=== PATIENT | male | born 1950 | race Caucasian/White ===

== ENCOUNTER 2017-07-03 06:05 | Inpatient (IN) | payer MEDICARE ==
--- NOTE | 2017-07-03 06:18 | C.PDOC ---
History Of Present Illness Patient presents with intermittent chest pain and some shortness of breath , for about 1 week, but [place] Dull chest wall pain Speaking in complete sentences., No f/c/n/v Time Seen by Provider: 07/03/17 06:18 Chief Complaint (Nursing): Chest Pain History Per: Patient History/Exam Limitations: no limitations Onset/Duration Of Symptoms: Days Current Symptoms Are (Timing): Still Present Context: Other Severity: Moderate Pain Scale Rating Of: 4 Quality: Dull, Aching Associated Symptoms: denies: Nausea, Dyspnea Modifying Factors: None Exacerbating Factors: None Alleviating Factors: None Recent travel outside of the [place]: No Additional History Per: Patient Past Medical History Reviewed: Historical Data, Nursing Documentation, Vital Signs Vital Signs: Last Vital Signs Temp 98.2 F 07/03/17 06:13 Pulse 105 H 07/03/17 06:13 Resp 26 H 07/03/17 06:13 BP 150/93 H 07/03/17 06:13 Pulse Ox 96 07/03/17 06:22 - Medical History PMH: HTN - [facility] DRAINAGE OF R LOW LEG SUBCU/FASCIA, OPEN APPROACH (08/08/15) Family History: States: No Known Family Hx - Social History Hx Alcohol Use: Yes Hx Substance Use: No Review Of Systems Constitutional: Negative for: Fever, Chills Eyes: Negative for: Vision Change ENT: Negative for: Throat Pain Cardiovascular: Positive for: Chest Pain Respiratory: Positive for: Shortness of Breath Gastrointestinal: Negative for: Nausea, Vomiting, Abdominal Pain Genitourinary: Negative for: Dysuria Musculoskeletal: Negative for: Back Pain Skin: Negative for: Rash Neurological: Negative for: Weakness Psych: Negative for: Anxiety Physical Exam - Physical Exam Appears: Non-toxic, No Acute Distress Skin: Warm, Dry Head: Normacephalic Eye(s): bilateral: Normal Inspection Oral Mucosa: Moist Neck: Supple Chest: Symmetrical Cardiovascular: Rhythm Regular Respiratory: No Rales, No Rhonchi, No Wheezing Gastrointestinal/Abdominal: Soft, No Tenderness, No Distention, No Guarding, No Rebound Back: No CVA Tenderness Extremity: Normal ROM Extremity: Bilateral: Atraumatic Pulses: Left Dorsalis Pedis: Normal, Right Dorsalis Pedis: Normal Neurological/Psych: Oriented x3, Normal Speech, Normal Cognition Gait: Steady ED Course And Treatment ECG: Interpreted By Me, Viewed By Me ECG Rhythm: Sinus Rhythm (102), L BBB, Nonspecific Changes (occ pvc's) O2 Sat by Pulse Oximetry: 96 Pulse Ox Interpretation: Normal Disposition Counseled Patient/Family Regarding: Studies Performed, Diagnosis - Disposition Disposition Time: 06:18 Condition: FAIR Forms: [facility] (Moroccan) - Clinical Impression Clinical Impression: Chest pain Physician Patient Turnover Patient Signed Over To: Liliana Cárdenas Handoff Comments: pending labs and dispostion
[2017-07-03] MEDS ORDERED: Aspirin 325 mg EC Tablets PO STA (06:22)
[2017-07-03 06:50] LABS: BASO # 0.1 K/uL (0.0-0.2); BASO % 1.2 % (0.0-2.0); EOS # 0.2 K/uL (0.0-0.7); EOS % 3.3 % (0.0-4.0); HEMOGLOBIN 13.5 g/dL (12.0-18.0); LYMPH # 1.1 K/uL (1.0-4.3); LYMPH % 19.4 % (20.0-40.0); MEAN CORPUSCULAR HEMOGLOBIN 33.1 pg (27.0-31.0); MEAN CORPUSCULAR HGB CONC 34.2 g/dL (33.0-37.0); MEAN PLATELET VOLUME 10.6 fL (7.2-11.7); MONO # 0.4 K/uL (0.0-0.8); MONO % 6.4 % (0.0-10.0); NEUT # 3.9 K/uL (1.8-7.0); NEUT % 69.7 % (50.0-75.0); NRBC % 0.1 % (0.0-2.0); RBC 4.07 Mil/uL (4.40-5.90); RED CELL DISTRIBUTION WIDTH 14.5 % (11.5-14.5); WHITE BLOOD COUNT 5.6 K/uL (4.8-10.8)
[2017-07-03 06:58] LABS: PROTHROMBIN TIME 11.4 SECONDS (9.7-12.2)
[2017-07-03 07:29] LABS: ALB/GLOB RATIO 1.2 (1.0-2.1); ALBUMIN 3.7 g/dL (3.5-5.0); ALT/SGPT 50 U/L (21-72); AST/SGOT 34 U/L (17-59); BLOOD UREA NITROGEN 17 mg/dL (9-20); CALCIUM 8.5 mg/dl (8.6-10.4); GFR AFRICAN-AMERICAN > 60; GFR NON-AFRICAN AMERICAN > 60
[2017-07-03 07:32] LABS: GRANULAR CAST 8 /lpf (0-1); URINE BILIRUBIN NEGATIVE (NEGATIVE); URINE BLOOD NEGATIVE (NEGATIVE); URINE CLARITY Hazy (Clear); URINE COLOR Yellow (YELLOW); URINE GLUCOSE (UA) 2+ mg/dL (Normal); URINE LEUKOCYTE ESTERASE NEG Leu/uL (Negative); URINE PROTEIN 2+ mg/dL (NEGATIVE); URINE UROBILINOGEN NORMAL mg/dL (0.2-1.0)
[2017-07-03 07:42] LABS: B-TYPE NATRIURETIC PEPTIDE 1780 pg/mL (0-900)
--- NOTE | 2017-07-03 07:48 | RAD ---
PROCEDURE: CHEST RADIOGRAPH, 1 VIEW HISTORY: chest pain COMPARISON: 08/08/2015 FINDINGS: LUNGS: No consolidation. Pulmonary venous congestion suggested -increased since prior exam PLEURA: No pneumothorax or pleural fluid seen. CARDIOVASCULAR: Cardiomegaly -similar OSSEOUS STRUCTURES: Thoracic spondylosis. Bilateral shoulder arthrosis VISUALIZED UPPER ABDOMEN: Normal. OTHER FINDINGS: None. IMPRESSION: Interval increased CHF
--- NOTE | 2017-07-03 11:28 | CARD ---
APPROVED REPORT EKG Measurement Heart [id number] <Conclusion> Sinus tachycardia with premature atrial complexes with aberrant conduction Left bundle branch block Abnormal ECG
--- NOTE | 2017-07-03 13:42 | CP.PCM.HP ---
History of Present Illness - History of Present Illness History of Present Illness: As a 67-year-old male with history of with history of osteoarthritis anxiety hypertension came in because of chest pain for a week left kidney and left side dull non-radiating nonreferred last for long time with some shortness of breath nonspecific without fever without cough got better after Lasix 20 mg almost going on for a week eventually decided to admit as a new onset CHF the pain and shortness of breath got worse when patient arrived at the train station eventually patient was able to come to the [facility] for further workup patient has no heart is done as per the patient Present on Admission - Present on Admission Any Indicators Present on Admission: No Past Patient History - Past Medical History & Family History Past Medical History?: No - Past Social History Smoking Status: Former Smoker - CARDIAC Hx Hypertension: Yes - ENDOCRINE/METABOLIC Hx Diabetes Mellitus Type 2: Yes - MUSCULOSKELETAL/RHEUMATOLOGICAL Hx Falls: No - PSYCHIATRIC Hx Substance Use: No - SURGICAL HISTORY Hx Surgeries: No - ANESTHESIA Hx Anesthesia: No Meds Allergies/Adverse Reactions: Allergies Allergy/AdvReac Type Severity Reaction Status Date / Time No Known Allergies Allergy Verified 07/03/17 06:19 Physical Exam - Constitutional Appears: Well - Head Exam Head Exam: ATRAUMATIC, NORMAL INSPECTION, NORMOCEPHALIC - Eye Exam Eye Exam: EOMI, Normal appearance, PERRL Pupil Exam: NORMAL ACCOMODATION, PERRL - ENT Exam ENT Exam: Mucous Membranes Moist, Normal Exam - Neck Exam Neck exam: Positive for: Normal Inspection - Respiratory Exam Respiratory Exam: Decreased Breath Sounds - Cardiovascular Exam Cardiovascular Exam: REGULAR RHYTHM, +S1, +S2 - GI/Abdominal Exam GI & Abdominal Exam: Diminished Bowel Sounds, Soft - Rectal Exam Rectal Exam: Deferred Results - Vital Signs Recent Vital Signs: Last Vital Signs Temp 98.6 F 07/03/17 12:23 Pulse 94 H 07/03/17 12:23 Resp 20 07/03/17 12:23 BP 129/76 07/03/17 12:23 Pulse Ox 95 07/03/17 12:23 - Labs Result Diagrams: 07/03/17 06:47 07/03/17 06:47 Labs: Laboratory Results - last 24 hr 07/03/17 07/03/17 07/03/17 06:47 06:47 06:47 WBC 5.6 RBC 4.07 L Hgb 13.5 Hct 39.5 MCV 97.0 H MCH 33.1 H MCHC 34.2 RDW 14.5 Plt Count 197 D MPV 10.6 Neut % (Auto) 69.7 Lymph % (Auto) 19.4 L [place] % (Auto) 6.4 Eos % (Auto) 3.3 Baso % (Auto) 1.2 Neut # (Auto) 3.9 Lymph # (Auto) 1.1 [place] # (Auto) 0.4 Eos # (Auto) 0.2 Baso # (Auto) 0.1 PT 11.4 INR 1.0 APTT 30 Sodium 135 Potassium 4.2 Chloride 100 Carbon Dioxide 22 Anion Gap 17 BUN 17 Creatinine 0.9 Est GFR ( Amer) > 60 Est GFR (Non-Af Amer) > 60 Random Glucose 266 H Calcium 8.5 L Total Bilirubin 0.6 AST 34 ALT 50 Alkaline Phosphatase 130 H Troponin I 0.0320 NT-Pro-B Natriuret Pep 1780 H Total Protein 6.6 Albumin 3.7 Globulin 3.0 Albumin/Globulin Ratio 1.2 Urine Color Urine Clarity Urine pH Ur Specific [place] Urine Protein Urine Glucose (UA) Urine Ketones Urine Blood Urine Nitrate Urine Bilirubin Urine Urobilinogen Ur Leukocyte Esterase Urine WBC (Auto) Urine RBC (Auto) Hyaline Casts Granular Casts (Auto) 07/03/17 07:01 WBC RBC Hgb Hct MCV MCH MCHC RDW Plt Count MPV Neut % (Auto) Lymph % (Auto) [place] % (Auto) Eos % (Auto) Baso % (Auto) Neut # (Auto) Lymph # (Auto) [place] # (Auto) Eos # (Auto) Baso # (Auto) PT INR APTT Sodium Potassium Chloride Carbon Dioxide Anion Gap BUN Creatinine Est GFR ( Amer) Est GFR (Non-Af Amer) Random Glucose Calcium Total Bilirubin AST ALT Alkaline Phosphatase Troponin I NT-Pro-B Natriuret Pep Total Protein Albumin Globulin Albumin/Globulin Ratio Urine Color Yellow Urine Clarity Hazy Urine pH 5.0 Ur Specific [place] 1.018 Urine Protein 2+ H Urine Glucose (UA) 2+ H Urine Ketones Trace Urine Blood Negative Urine Nitrate Negative Urine Bilirubin Negative Urine Urobilinogen Normal Ur Leukocyte Esterase Neg Urine WBC (Auto) 1 Urine RBC (Auto) 1 Hyaline Casts 11-20 H Granular Casts (Auto) 8 Assessment & Plan - Assessment and Plan (Free Text) Plan: GI prophylaxis DVT prophylaxis Pulmonary consultation Cardiology consultation Lasix IV Azithromycin IV DuoNeb All other management as ordered
[2017-07-03] MEDS ORDERED: Iodixanol 320 MG/ML 100 ML BOTTLE IV ONE (15:46)
[2017-07-03] MEDS: Albuterol-Ipratrop 3 mg / 0.5 (3 ml) UD INH SCH (16:21)
--- NOTE | 2017-07-03 16:39 | CT ---
PROCEDURE: CT Chest with contrast (Pulmonary Angiogram) HISTORY: pulmonary embolism COMPARISON: Chest radiograph also 07/03/2017. TECHNIQUE: Axial computed tomography images were obtained of the chest in the pulmonary arterial phase of enhancement. Coronal and sagittal reformatted images were created and reviewed. Intravenous contrast dose: Visipaque 320, 100 cc Radiation dose: Total exam DLP = 539.72 mGy-cm. This CT exam was performed using one or more of the following dose reduction techniques: Automated exposure control, adjustment of the mA and/or kV according to patient size, and/or use of iterative reconstruction technique. FINDINGS: PULMONARY ARTERIES: Unremarkable. No pulmonary embolism. AORTA: No acute findings. No thoracic aortic aneurysm. LUNGS: Bilateral subtle new reticulonodular infiltrates are appreciate the upper lobes predominantly with no definite alveolitis pattern evident. Limited compression atelectasis in the right greater than left lower lobes related to pleural effusions described below. Limited dependent atelectasis noted at the left upper lobe as well. PLEURAL SPACES: Mild bilateral pleural effusions are identified greater the right than left pleural spaces. No pneumothorax bilaterally. HEART: Mild cardiomegaly and extensive coronary artery atherosclerosis identified. No pericardial effusion. No definite pulmonary vascular congestion. LYMPH NODES: Shotty mediastinal and hilar lymph nodes are identified. BONES, CHEST WALL: Unremarkable. No fracture or destructive lesion OTHER FINDINGS: Incidental sludge or cholelithiasis seen in the dependent distended gallbladder without mural thickening or pericholecystic fluid collection evident. IMPRESSION: 1. No pulmonary embolus identified. 2. Nonspecific bilateral interstitial pattern of reticulonodular infiltrates are subtle in the bilateral upper lobes predominantly. No definite alveolitis bilaterally of the compression atelectasis is seen related to the right greater than left pleural effusions. 3. Mild bilateral pleural effusion greater the right than left sides. 4. Cardiomegaly. No definite pulmonary vascular congestion. 5. Distended gallbladder with layering sludge or limited cholelithiasis at the dependent portion.
--- NOTE | 2017-07-03 17:09 | CP.PCM.CON ---
Past Patient History - Past Medical History & Family History Past Medical History?: No - Past Social History Smoking Status: Former Smoker - CARDIAC Hx Hypertension: Yes - ENDOCRINE/METABOLIC Hx Diabetes Mellitus Type 2: Yes - MUSCULOSKELETAL/RHEUMATOLOGICAL Hx Falls: No - PSYCHIATRIC Hx Substance Use: No - SURGICAL HISTORY Hx Surgeries: No - ANESTHESIA Hx Anesthesia: No Meds Allergies/Adverse Reactions: Allergies Allergy/AdvReac Type Severity Reaction Status Date / Time No Known Allergies Allergy Verified 07/03/17 06:19 - Medications Medications: Current Medications Albuterol/Ipratropium (Duoneb 3 Mg/0.5 Mg (3 Ml) Ud) 3 ml INH RQ6 JUAN Last Admin: 07/03/17 16:21 Dose: 3 ml Aspirin (Aspirin) 325 mg PO DAILY JUAN Enoxaparin Sodium (Lovenox) 40 mg SC DAILY JUAN Furosemide (Lasix) 40 mg IVP DAILY JUAN Azithromycin 500 mg/ Sodium (Chloride) 250 mls @ 250 mls/hr IVPB DAILY JUAN PRN Reason: Protocol Stop: 07/07/17 10:01 Pantoprazole Sodium (Protonix Ec Tab) 40 mg PO DAILY [facility] Results - Vital Signs Recent Vital Signs: Last Vital Signs Temp 98.6 F 07/03/17 12:23 Pulse 100 H 07/03/17 15:24 Resp 20 07/03/17 15:24 BP 133/89 07/03/17 15:24 Pulse Ox 97 07/03/17 15:24 - Labs Result Diagrams: 07/03/17 06:47 07/03/17 06:47 Labs: Laboratory Results - last 24 hr 07/03/17 07/03/17 07/03/17 06:47 06:47 06:47 WBC 5.6 RBC 4.07 L Hgb 13.5 Hct 39.5 MCV 97.0 H MCH 33.1 H MCHC 34.2 RDW 14.5 Plt Count 197 D MPV 10.6 Neut % (Auto) 69.7 Lymph % (Auto) 19.4 L [place] % (Auto) 6.4 Eos % (Auto) 3.3 Baso % (Auto) 1.2 Neut # (Auto) 3.9 Lymph # (Auto) 1.1 [place] # (Auto) 0.4 Eos # (Auto) 0.2 Baso # (Auto) 0.1 PT 11.4 INR 1.0 APTT 30 Sodium 135 Potassium 4.2 Chloride 100 Carbon Dioxide 22 Anion Gap 17 BUN 17 Creatinine 0.9 Est GFR ( Amer) > 60 Est GFR (Non-Af Amer) > 60 Random Glucose 266 H Calcium 8.5 L Total Bilirubin 0.6 AST 34 ALT 50 Alkaline Phosphatase 130 H Troponin I 0.0320 NT-Pro-B Natriuret Pep 1780 H Total Protein 6.6 Albumin 3.7 Globulin 3.0 Albumin/Globulin Ratio 1.2 Urine Color Urine Clarity Urine pH Ur Specific [place] Urine Protein Urine Glucose (UA) Urine Ketones Urine Blood Urine Nitrate Urine Bilirubin Urine Urobilinogen Ur Leukocyte Esterase Urine WBC (Auto) Urine RBC (Auto) Hyaline Casts Granular Casts (Auto) 07/03/17 07:01 WBC RBC Hgb Hct MCV MCH MCHC RDW Plt Count MPV Neut % (Auto) Lymph % (Auto) [place] % (Auto) Eos % (Auto) Baso % (Auto) Neut # (Auto) Lymph # (Auto) [place] # (Auto) Eos # (Auto) Baso # (Auto) PT INR APTT Sodium Potassium Chloride Carbon Dioxide Anion Gap BUN Creatinine Est GFR ( Amer) Est GFR (Non-Af Amer) Random Glucose Calcium Total Bilirubin AST ALT Alkaline Phosphatase Troponin I NT-Pro-B Natriuret Pep Total Protein Albumin Globulin Albumin/Globulin Ratio Urine Color Yellow Urine Clarity Hazy Urine pH 5.0 Ur Specific [place] 1.018 Urine Protein 2+ H Urine Glucose (UA) 2+ H Urine Ketones Trace Urine Blood Negative Urine Nitrate Negative Urine Bilirubin Negative Urine Urobilinogen Normal Ur Leukocyte Esterase Neg Urine WBC (Auto) 1 Urine RBC (Auto) 1 Hyaline Casts 11-20 H Granular Casts (Auto) 8
[2017-07-03] MEDS: (Novolog) Insulin Aspart, Recombinant 100 u/ml 10 ml vial SC SCH ×2 (18:32→22:21)
--- NOTE | 2017-07-03 19:14 | CP.PCM.CON ---
History of Present Illness - History of Present Illness History of Present Illness: I was asked to evaluate patient by Dr Macey Moore patient is a 67 year old male with PMH HTn, DM who presents with chest pain. Symptoms began about one week ago, and are describesd as pressure like and associated with exertion. The patient has associated dyspnea. The patient states symptoms are progressive. He has to stop for symptoms to improve. Review of Systems - Constitutional Constitutional: absent: As Per HPI, Anorexia, Chills, Daytime Sleepiness, Excessive Sweating, Fatigue, Fever, Frequent Falls, Headache, Increased Appetite , Lethargy, Malaise, Night Sweats, Snoring, Sleep Apnea, Weight Gain, Weight Loss, Weakness, Other - EENT Eyes: absent: As Per HPI, Blind Spots, Blurred Vision, Change in Vision, Decreased Night Vision, Diplopia, Discharge, Dry Eye, Exophthalmos, Floaters, Irritation, Itchy Eyes, Loss of Peripheral Vision, Pain, Photophobia, Requires Corrective Lenses, Sees Flashes, Spots in Vision, Tunnel Vision, Other Visual Disturbances, Loss of Vision, Other Ears: absent: As Per HPI, Decreased Hearing, Ear Discharge, Ear Pain, Tinnitus, Abnormal Hearing, Disequilibrium, Dizziness, Other Nose/Mouth/Throat: absent: As Per HPI, Epistaxis, Nasal Congestion, Nasal Discharge, Nasal Obstruction, Nasal Trauma, Nose Pain, Post Nasal Drip, Sinus Pain, Sinus Pressure, Bleeding Gums, Change in Voice, Dental Pain, Dry Mouth, Dysphagia, Halitosis, Hoarsness, Lip Swelling, Mouth Lesions, Mouth Pain, Odynophagia, Sore Throat, Throat Swelling, Tongue Swelling, Facial Pain, Neck Pain, Neck Mass, Other - Cardiovascular Cardiovascular: Chest Pain at Rest, Dyspnea - Respiratory Respiratory: Dyspnea - Gastrointestinal Gastrointestinal: absent: As Per HPI, Abdominal Pain, Belching, Bloating, Change in Bowel Habits, Change in Stool Character, Coffee Ground Emesis, Constipation, Cramping, Diarrhea, Dyspepsia, Dysphagia, Early Satiety, Excessive Flatus, Fecal Incontinence, Heartburn, Hematemesis, Hematochezia, Loose Stools, Melena, Nausea, Odynophagia, Temesmus, Vomiting, Other - Genitourinary Genitourinary: absent: As Per HPI, Change in Urinary Stream, Difficulty Urinating, Dysuria, Flank Pain, Hematuria, Pyuria, Nocturia, Urinary Incontinence, Urinary Frequency, Urinary Hesitance, Urinary Urgency, Voiding Freq/Small Amts, Freq UTI, Hx Renal/Bladder Calculi, Hx /Renal Surgery, Bladder Distension, Other - Musculoskeletal Musculoskeletal: absent: As Per HPI, Abnormal Gait, Arthralgias, Atrophy, Back Pain, Deformity, Joint Swelling, Limited Range of Motion, Loss of Height, Muscle Cramps, Muscle Weakness, Myalgias, Neck Pain, Numbness, Radiating Pain into Limb, Stiffness, Tingling, Other - Integumentary Integumentary: absent: As Per HPI, Acne, Alopecia, Bleeding Lesions, Change in Hair, Change in Nails, Change in Pigmentation, Changing Lesions, Dry Skin, Erythema, Furuncle, Hirsutism, Lesions, New Lesions, Non-Healing Lesions, Photosensitivity, Pruritus, Rash, Skin Pain, Skin Ulcer, Sores, Striae, Swelling , Unusual Bruising, Wounds, Jaundice, Other - Neurological Neurological: absent: As Per HPI, Abnormal Gait, Abnormal Hearing, Abnormal Movements, Abnormal Speech, Behavioral Changes, Burning Sensations, Confusion, Convulsions, Disequilibrium, Dizziness, Numbness, Focal Weakness, Frequent Falls , Headaches, Lack of Coordination, Loss of Vision, Memory Loss, Paresthesias, Radicular Pain, Restless Legs, Sensory Deficit, Syncope, Tingling, Tremor, Vertigo, Weakness, Other Visual Disturbances, Other - Psychiatric Psychiatric: absent: As Per HPI, Abnormal Sleep Pattern, Anhedonia, Anxiety, Auditory Hallucinations, Behavioral Changes, Change in Appetite, Change in Libido, Confusion, Depression, Difficulty Concentrating, Hallucinations, Homicidal Ideation, Hopelessness, Irritability, Memory Loss, Mood Swings, Panic Attacks, Paranoia, Suicidal Ideation, Visual Hallucinations, Tactile Hallucinations, Other - Endocrine Endocrine: absent: As Per HPI, Change in Body Appearance, Change in Libido, Cold Intolorance, Deepening of Voice, Excessive Sweating, Fatigue, Flushing, Heat Intolorance, Increase in Ring/Shoe/Hat Size, Palpitations, Polydipsia, Polyphagia, Polyuria, Other - Hematologic/Lymphatic Hematologic: absent: As Per HPI, Easy Bleeding, Easy Bruising, Lymphadenopathy, Other Past Patient History - Past Medical History & Family History Past Medical History?: No - Past Social History Smoking Status: Former Smoker - CARDIAC Hx Hypertension: Yes - ENDOCRINE/METABOLIC Hx Diabetes Mellitus Type 2: Yes - MUSCULOSKELETAL/RHEUMATOLOGICAL Hx Falls: No - PSYCHIATRIC Hx Substance Use: No - SURGICAL HISTORY Hx Surgeries: No - ANESTHESIA Hx Anesthesia: No Meds Allergies/Adverse Reactions: Allergies Allergy/AdvReac Type Severity Reaction Status Date / Time No Known Allergies Allergy Verified 07/03/17 06:19 - Medications Medications: Current Medications Albuterol/Ipratropium (Duoneb 3 Mg/0.5 Mg (3 Ml) Ud) 3 ml INH RQ6 JUAN Last Admin: 07/03/17 16:21 Dose: 3 ml Aspirin (Aspirin) 325 mg PO DAILY JUAN Enoxaparin Sodium (Lovenox) 40 mg SC DAILY JUAN Furosemide (Lasix) 40 mg IVP DAILY JUAN Azithromycin 500 mg/ Sodium (Chloride) 250 mls @ 250 mls/hr IVPB DAILY JUAN PRN Reason: Protocol Stop: 07/07/17 10:01 Insulin Aspart (Novolog) 0 unit SC ACHS JUAN PRN Reason: Protocol Last Admin: 07/03/17 18:32 Dose: 5 unit Pantoprazole Sodium (Protonix Ec Tab) 40 mg PO DAILY [facility] Physical Exam - Constitutional Appears: Non-toxic - Head Exam Head Exam: NORMAL INSPECTION - Eye Exam Eye Exam: Normal appearance - ENT Exam ENT Exam: Mucous Membranes Moist - Neck Exam Neck exam: Positive for: Full Rom - Respiratory Exam Respiratory Exam: NORMAL BREATHING PATTERN - Cardiovascular Exam Cardiovascular Exam: REGULAR RHYTHM - GI/Abdominal Exam GI & Abdominal Exam: Normal Bowel Sounds - Rectal Exam Rectal Exam: Deferred - Extremities Exam Extremities exam: Negative for: pedal edema - Back Exam Back exam: NORMAL INSPECTION - Neurological Exam Neurological exam: Alert, Oriented x3 - Psychiatric Exam Psychiatric exam: Normal Affect - Skin Skin Exam: Normal Color Results - Vital Signs Recent Vital Signs: Last Vital Signs Temp 98.7 F 07/03/17 16:59 Pulse 92 H 07/03/17 16:59 Resp 18 07/03/17 16:59 BP 138/88 07/03/17 16:59 Pulse Ox 98 07/03/17 16:59 - Labs Result Diagrams: 07/03/17 06:47 07/03/17 06:47 Labs: Laboratory Results - last 24 hr 07/03/17 07/03/17 07/03/17 06:47 06:47 06:47 WBC 5.6 RBC 4.07 L Hgb 13.5 Hct 39.5 MCV 97.0 H MCH 33.1 H MCHC 34.2 RDW 14.5 Plt Count 197 D MPV 10.6 Neut % (Auto) 69.7 Lymph % (Auto) 19.4 L [place] % (Auto) 6.4 Eos % (Auto) 3.3 Baso % (Auto) 1.2 Neut # (Auto) 3.9 Lymph # (Auto) 1.1 [place] # (Auto) 0.4 Eos # (Auto) 0.2 Baso # (Auto) 0.1 PT 11.4 INR 1.0 APTT 30 Sodium 135 Potassium 4.2 Chloride 100 Carbon Dioxide 22 Anion Gap 17 BUN 17 Creatinine 0.9 Est GFR ( Amer) > 60 Est GFR (Non-Af Amer) > 60 POC Glucose (mg/dL) Random Glucose 266 H Calcium 8.5 L Total Bilirubin 0.6 AST 34 ALT 50 Alkaline Phosphatase 130 H Troponin I 0.0320 NT-Pro-B Natriuret Pep 1780 H Total Protein 6.6 Albumin 3.7 Globulin 3.0 Albumin/Globulin Ratio 1.2 Urine Color Urine Clarity Urine pH Ur Specific [place] Urine Protein Urine Glucose (UA) Urine Ketones Urine Blood Urine Nitrate Urine Bilirubin Urine Urobilinogen Ur Leukocyte Esterase Urine WBC (Auto) Urine RBC (Auto) Hyaline Casts Granular Casts (Auto) 07/03/17 07/03/17 07:01 17:50 WBC RBC Hgb Hct MCV MCH MCHC RDW Plt Count MPV Neut % (Auto) Lymph % (Auto) [place] % (Auto) Eos % (Auto) Baso % (Auto) Neut # (Auto) Lymph # (Auto) [place] # (Auto) Eos # (Auto) Baso # (Auto) PT INR APTT Sodium Potassium Chloride Carbon Dioxide Anion Gap BUN Creatinine Est GFR ( Amer) Est GFR (Non-Af Amer) POC Glucose (mg/dL) 389 H Random Glucose Calcium Total Bilirubin AST ALT Alkaline Phosphatase Troponin I NT-Pro-B Natriuret Pep Total Protein Albumin Globulin Albumin/Globulin Ratio Urine Color Yellow Urine Clarity Hazy Urine pH 5.0 Ur Specific [place] 1.018 Urine Protein 2+ H Urine Glucose (UA) 2+ H Urine Ketones Trace Urine Blood Negative Urine Nitrate Negative Urine Bilirubin Negative Urine Urobilinogen Normal Ur Leukocyte Esterase Neg Urine WBC (Auto) 1 Urine RBC (Auto) 1 Hyaline Casts 11-20 H Granular Casts (Auto) 8 - EKG Data EKG Interpreted by: Myself EKG shows normal: Sinus rhythm Assessment & Plan (1) Chest pain Assessment and Plan: patient has an abnormal EKG suggestive of LBBB. recommend echo to evaluate LV function Status: Acute (2) HTN (hypertension) Assessment and Plan: blood pressure control Status: Acute (3) Diabetes mellitus Assessment and Plan: risk factor for CAD Status: Acute
[2017-07-04] MEDS: Albuterol-Ipratrop 3 mg / 0.5 (3 ml) UD INH SCH ×4 (06:11→20:15)
[2017-07-04] MEDS: (Novolog) Insulin Aspart, Recombinant 100 u/ml 10 ml vial SC SCH ×4 (08:17→21:32)
--- NOTE | 2017-07-04 08:28 | CP.PCM.PN ---
Subjective - Date & Time of Evaluation Date of Evaluation: 07/04/17 Time of Evaluation: 08:20 - Subjective Subjective: no current chest pain. Objective - Vital Signs/Intake and Output Vital Signs (last 24 hours): Temp Pulse Resp BP Pulse Ox 97.8 F 86 20 142/82 97 07/04/17 07:05 07/04/17 07:05 07/04/17 07:05 07/04/17 07:05 07/04/17 07:05 - Medications Medications: Current Medications Albuterol/Ipratropium (Duoneb 3 Mg/0.5 Mg (3 Ml) Ud) 3 ml INH RQ6 JUAN Last Admin: 07/04/17 07:34 Dose: 3 ml Aspirin (Aspirin) 325 mg PO DAILY JUAN Enoxaparin Sodium (Lovenox) 40 mg SC DAILY JUAN Furosemide (Lasix) 40 mg IVP DAILY JUAN Azithromycin 500 mg/ Sodium (Chloride) 250 mls @ 250 mls/hr IVPB DAILY JUAN PRN Reason: Protocol Stop: 07/07/17 10:01 Insulin Aspart (Novolog) 0 unit SC ACHS JUAN PRN Reason: Protocol Last Admin: 07/04/17 08:17 Dose: 2 unit Pantoprazole Sodium (Protonix Ec Tab) 40 mg PO DAILY JUAN Pneumococcal Polyvalent Vaccine (Pneumovax 23 Vaccine) 0.5 ml IM .ONCE ONE Stop: 07/05/17 10:01 - Labs Labs: 07/03/17 06:47 07/03/17 06:47 PT 11.4 SECONDS (9.7-12.2) 07/03/17 06:47 INR 1.0 07/03/17 06:47 APTT 30 SECONDS (21-34) 07/03/17 06:47 - Constitutional Appears: Non-toxic - Head Exam Head Exam: NORMAL INSPECTION - Eye Exam Eye Exam: Normal appearance - ENT Exam ENT Exam: Mucous Membranes Moist - Neck Exam Neck Exam: Full ROM - Respiratory Exam Respiratory Exam: NORMAL BREATHING PATTERN - Cardiovascular Exam Cardiovascular Exam: REGULAR RHYTHM - GI/Abdominal Exam GI & Abdominal Exam: Normal Bowel Sounds - Rectal Exam Rectal Exam: Deferred - Extremities Exam Extremities Exam: absent: Pedal Edema - Back Exam Back Exam: NORMAL INSPECTION - Neurological Exam Neurological Exam: Alert - Psychiatric Exam Psychiatric exam: Normal Affect - Skin Skin Exam: Normal Color Assessment and Plan (1) Chest pain Assessment & Plan: will check echo Status: Acute (2) HTN (hypertension) Assessment & Plan: blood pressure control Status: Acute (3) Diabetes mellitus Status: Acute
[2017-07-04] MEDS ORDERED: Glucagon Recombinant 1 mg Inj IM PRN (10:06)
[2017-07-04] MEDS ORDERED: Dextrose 50% SYRINGE Inj (50 ml) IV PRN (10:06)
--- NOTE | 2017-07-04 10:12 | CP.PCM.PN ---
Addendum entered and electronically signed by Jorge Bolton DO 07/04/17 16:09: Patient further denies SOB or palpitations at rest or with exertion. Original Note: <Jorge Bolton - Last Filed: 07/04/17 16:08> Subjective - Date & Time of Evaluation Date of Evaluation: 07/04/17 Time of Evaluation: 09:52 - Subjective Subjective: PGY02 note for Dr. Moore's service: Pt seen and examined at bedside. Nursing reports no acute events overnight. Patient denies chest pain overnight. Objective - Vital Signs/Intake and Output Vital Signs (last 24 hours): Temp Pulse Resp BP Pulse Ox 97.8 F 98 H 20 142/82 97 07/04/17 07:05 07/04/17 07:49 07/04/17 07:05 07/04/17 07:05 07/04/17 07:05 - Medications Medications: Current Medications Albuterol/Ipratropium (Duoneb 3 Mg/0.5 Mg (3 Ml) Ud) 3 ml INH RQ6 [facility] Last Admin: 07/04/17 07:34 Dose: 3 ml Aspirin (Aspirin) 325 mg PO DAILY [facility] Enoxaparin Sodium (Lovenox) 40 mg SC DAILY [facility] Furosemide (Lasix) 40 mg IVP DAILY [facility] Azithromycin 500 mg/ Sodium (Chloride) 250 mls @ 250 mls/hr IVPB DAILY [facility] PRN Reason: Protocol Stop: 07/07/17 10:01 Insulin Aspart (Novolog) 0 unit SC ACHS [facility] PRN Reason: Protocol Last Admin: 07/04/17 08:17 Dose: 2 unit Pantoprazole Sodium (Protonix Ec Tab) 40 mg PO DAILY [facility] Pneumococcal Polyvalent Vaccine (Pneumovax 23 Vaccine) 0.5 ml IM .ONCE ONE Stop: 07/05/17 10:01 - Labs Labs: 07/03/17 06:47 07/03/17 06:47 PT 11.4 SECONDS (9.7-12.2) 07/03/17 06:47 INR 1.0 07/03/17 06:47 APTT 30 SECONDS (21-34) 07/03/17 06:47 - Constitutional Appears: Non-toxic, No Acute Distress - Head Exam Head Exam: ATRAUMATIC, NORMAL INSPECTION - Eye Exam Eye Exam: EOMI. absent: Scleral icterus Pupil Exam: PERRL - ENT Exam ENT Exam: Mucous Membranes Moist Additional comments: no jvd - Neck Exam Neck Exam: Full ROM - Respiratory Exam Respiratory Exam: Clear to Ausculation Bilateral, NORMAL BREATHING PATTERN. absent: Rales, Rhonchi, Wheezes - Cardiovascular Exam Cardiovascular Exam: REGULAR RHYTHM, +S1, +S2 - GI/Abdominal Exam GI & Abdominal Exam: Soft, Normal Bowel Sounds. absent: Tenderness - Extremities Exam Extremities Exam: Normal Inspection. absent: Pedal Edema - Back Exam Back Exam: absent: CVA tenderness (L), CVA tenderness (R) - Neurological Exam Neurological Exam: Alert, Awake, Oriented x3 - Psychiatric Exam Psychiatric exam: Normal Affect - Skin Skin Exam: Normal Color, Warm Assessment and Plan - Assessment and Plan (Free Text) Plan: Chest pain - R/o ACS Admit to tele Troponin negative x 1 EKG (07/03/17): NSR @ ; LBB; Dr. Britt, application development consultant - f/u reccs f/u ECHO CHF Unknown type - f/u ECHO BNP 1780 CXR (07/02/17): Pulm venous congestion - increased since prior exam. Dr. Britt, application development consultant - f/u reccs Lasix 40mg IV Daily SOB Etiology: CHF exacerbation CT CHEST (07/02/17): No pulm embolus. Nonspecific b/l reticulonodular infiltrates are subtle in b/l upper lobes predominantly. No definite alveolitis b/l of compression atelectasis is related to right > left pleural effusions. Mild b/l plueral effusion greater right than left. Cardiomegaly. No definite pulm vasc congestion. Distended GB w layering sludge or limited cholelithiasis at dependent portion. Dr. Merida, Pulm consult - f/u reccs Duonebs Q6H [facility] Azithromycin 500mg IV daily (start 07/03/17) Pleural effusions Etiology: Most likely CHF CT CHEST (07/02/17): No pulm embolus. Nonspecific b/l reticulonodular infiltrates are subtle in b/l upper lobes predominantly. No definite alveolitis b/l of compression atelectasis is related to right > left pleural effusions. Mild b/l plueral effusion greater right than left. Cardiomegaly. No definite pulm vasc congestion. Distended GB w layering sludge or limited cholelithiasis at dependent portion. Diabetes Mellitus f/u A1c Accuchecks Hypoglycemia protocol MISS ASA 325mg PO Daily Proteinuria UA (07/03/17): 2+ protein Monitor Prophylaxis Lovenox 40mg SC daily Protonix 40mg PO daily SCDs Jorge Bolton PGY-2 All management per Oscar <Leila Moore - Last Filed: 07/05/17 00:37> Objective - Vital Signs/Intake and Output Vital Signs (last 24 hours): Temp Pulse Resp BP Pulse Ox 98.0 F 96 H 20 110/77 94 L 07/04/17 15:55 07/04/17 16:16 07/04/17 15:55 07/04/17 15:55 07/04/17 15:55 Intake and Output: 07/04/17 07/05/17 18:59 06:59 Intake Total 250 500 Balance 250 500 - Medications Medications: Current Medications Albuterol/Ipratropium (Duoneb 3 Mg/0.5 Mg (3 Ml) Ud) 3 ml INH RQ6 [facility] Last Admin: 07/04/17 20:15 Dose: 3 ml Aspirin (Aspirin) 325 mg PO DAILY [facility] Last Admin: 07/04/17 10:26 Dose: 325 mg Dextrose (Dextrose 50% Inj) 0 ml IV STAT PRN; Protocol PRN Reason: Hypoglycemia Protocol Dextrose (Glutose 15) 0 gm PO ONCE PRN; Protocol PRN Reason: Hypoglycemia Protocol Enoxaparin Sodium (Lovenox) 40 mg SC DAILY [facility] Last Admin: 07/04/17 10:26 Dose: 40 mg Furosemide (Lasix) 40 mg IVP DAILY [facility] Last Admin: 07/04/17 10:38 Dose: 40 mg Glucagon (Glucagen Diagnostic Kit) 0 mg IM STAT PRN; Protocol PRN Reason: Hypoglycemia Protocol Azithromycin 500 mg/ Sodium (Chloride) 250 mls @ 250 mls/hr IVPB DAILY [facility] PRN Reason: Protocol Stop: 07/07/17 10:01 Last Admin: 07/04/17 10:24 Dose: 250 mls/hr Dextrose (Dextrose 5% In Water 1000 Ml) 1,000 mls @ 0 mls/hr IV .Q0M PRN; Protocol; Per Protocol PRN Reason: Hypoglycemia Protocol Insulin Aspart (Novolog) 0 unit SC ACHS [facility] PRN Reason: Protocol Last Admin: 07/04/17 21:32 Dose: 2 unit Pantoprazole Sodium (Protonix Ec Tab) 40 mg PO DAILY [facility] Last Admin: 07/04/17 10:26 Dose: 40 mg Pneumococcal Polyvalent Vaccine (Pneumovax 23 Vaccine) 0.5 ml IM .ONCE ONE Stop: 07/05/17 10:01 Temazepam (Restoril) 15 mg PO HS PRN PRN Reason: Insomnia Last Admin: 07/04/17 23:34 Dose: 15 mg - Labs Labs: 07/03/17 06:47 07/03/17 06:47 PT 11.4 SECONDS (9.7-12.2) 07/03/17 06:47 INR 1.0 07/03/17 06:47 APTT 30 SECONDS (21-34) 07/03/17 06:47 Attending/Attestation - Attestation I have personally seen and examined this patient.: Yes I have fully participated in the care of the patient.: Yes I have reviewed all pertinent clinical information, including history, physical exam and plan: Yes
[2017-07-04] MEDS: Azithromycin 500 MG in Sodium Chloride 0.9% 250 ML IVPB SCH (10:24)
[2017-07-04] MEDS: Enoxaparin 40 mg Syringe SC SCH (10:26)
[2017-07-04] MEDS: Pantoprazole 40 mg EC Tab PO SCH (10:26)
--- NOTE | 2017-07-04 17:49 | CP.PCM.PN ---
Subjective - Date & Time of Evaluation Date of Evaluation: 07/04/17 Time of Evaluation: 11:00 - Subjective Subjective: Patient is a 67 year old male with a past medical history of hypertension, osteoarthritis and anxiety who presented to [facility] on with complaints of chest pain and shortness of breath. EKG done in the ED showed sinus tachycardia at 102 bpm with left bundle branch block, but we have no previous studies available for comparison. CT scan showed non-specific reticulonodular changes of the bilateral upper lung lobes and small right > left pleural effusions. Patient seen today and examined seated upright in a chair. Patient comfortably conversational and in no apparent respiratory distress. Patient saturating well at 97% on room air and states his chest pain is improved and denies shortness of breath since receiving Lasix. Patient denies fevers, chills, coughing and wheezing. Assessment/Plan 1. CHF Follow-up with echocardiogram ordered by Dr. Britt. Shortness of breath on admission likely cardiogenic, given non-specific lung findings on imaging and LBBB per EKG. 2. Pleural effusions Continue to monitor for SOB, but will likely resolve with continued diuresis. Objective - Vital Signs/Intake and Output Vital Signs (last 24 hours): Temp Pulse Resp BP Pulse Ox 98.0 F 96 H 20 110/77 94 L 07/04/17 15:55 07/04/17 16:16 07/04/17 15:55 07/04/17 15:55 07/04/17 15:55 Intake and Output: 07/04/17 07/04/17 06:59 18:59 Intake Total 250 Balance 250 - Medications Medications: Current Medications Albuterol/Ipratropium (Duoneb 3 Mg/0.5 Mg (3 Ml) Ud) 3 ml INH RQ6 [facility] Last Admin: 07/04/17 13:13 Dose: 3 ml Aspirin (Aspirin) 325 mg PO DAILY [facility] Last Admin: 07/04/17 10:26 Dose: 325 mg Dextrose (Dextrose 50% Inj) 0 ml IV STAT PRN; Protocol PRN Reason: Hypoglycemia Protocol Dextrose (Glutose 15) 0 gm PO ONCE PRN; Protocol PRN Reason: Hypoglycemia Protocol Enoxaparin Sodium (Lovenox) 40 mg SC DAILY [facility] Last Admin: 07/04/17 10:26 Dose: 40 mg Furosemide (Lasix) 40 mg IVP DAILY [facility] Last Admin: 07/04/17 10:38 Dose: 40 mg Glucagon (Glucagen Diagnostic Kit) 0 mg IM STAT PRN; Protocol PRN Reason: Hypoglycemia Protocol Azithromycin 500 mg/ Sodium (Chloride) 250 mls @ 250 mls/hr IVPB DAILY [facility] PRN Reason: Protocol Stop: 07/07/17 10:01 Last Admin: 07/04/17 10:24 Dose: 250 mls/hr Dextrose (Dextrose 5% In Water 1000 Ml) 1,000 mls @ 0 mls/hr IV .Q0M PRN; Protocol; Per Protocol PRN Reason: Hypoglycemia Protocol Insulin Aspart (Novolog) 0 unit SC ACHS [facility] PRN Reason: Protocol Last Admin: 07/04/17 17:46 Dose: 2 unit Pantoprazole Sodium (Protonix Ec Tab) 40 mg PO DAILY [facility] Last Admin: 07/04/17 10:26 Dose: 40 mg Pneumococcal Polyvalent Vaccine (Pneumovax 23 Vaccine) 0.5 ml IM .ONCE ONE Stop: 07/05/17 10:01 - Labs Labs: 07/03/17 06:47 07/03/17 06:47 PT 11.4 SECONDS (9.7-12.2) 07/03/17 06:47 INR 1.0 07/03/17 06:47 APTT 30 SECONDS (21-34) 07/03/17 06:47
--- NOTE | 2017-07-04 19:12 | CP.PCM.PN ---
Subjective - Date & Time of Evaluation Date of Evaluation: 07/04/17 Time of Evaluation: 13:20 - Subjective Subjective: clinically same Objective - Vital Signs/Intake and Output Vital Signs (last 24 hours): Temp Pulse Resp BP Pulse Ox 98.0 F 96 H 20 110/77 94 L 07/04/17 15:55 07/04/17 16:16 07/04/17 15:55 07/04/17 15:55 07/04/17 15:55 Intake and Output: 07/04/17 07/05/17 18:59 06:59 Intake Total 250 Balance 250 - Medications Medications: Current Medications Albuterol/Ipratropium (Duoneb 3 Mg/0.5 Mg (3 Ml) Ud) 3 ml INH RQ6 [facility] Last Admin: 07/04/17 13:13 Dose: 3 ml Aspirin (Aspirin) 325 mg PO DAILY [facility] Last Admin: 07/04/17 10:26 Dose: 325 mg Dextrose (Dextrose 50% Inj) 0 ml IV STAT PRN; Protocol PRN Reason: Hypoglycemia Protocol Dextrose (Glutose 15) 0 gm PO ONCE PRN; Protocol PRN Reason: Hypoglycemia Protocol Enoxaparin Sodium (Lovenox) 40 mg SC DAILY [facility] Last Admin: 07/04/17 10:26 Dose: 40 mg Furosemide (Lasix) 40 mg IVP DAILY [facility] Last Admin: 07/04/17 10:38 Dose: 40 mg Glucagon (Glucagen Diagnostic Kit) 0 mg IM STAT PRN; Protocol PRN Reason: Hypoglycemia Protocol Azithromycin 500 mg/ Sodium (Chloride) 250 mls @ 250 mls/hr IVPB DAILY [facility] PRN Reason: Protocol Stop: 07/07/17 10:01 Last Admin: 07/04/17 10:24 Dose: 250 mls/hr Dextrose (Dextrose 5% In Water 1000 Ml) 1,000 mls @ 0 mls/hr IV .Q0M PRN; Protocol; Per Protocol PRN Reason: Hypoglycemia Protocol Insulin Aspart (Novolog) 0 unit SC ACHS [facility] PRN Reason: Protocol Last Admin: 07/04/17 17:46 Dose: 2 unit Pantoprazole Sodium (Protonix Ec Tab) 40 mg PO DAILY [facility] Last Admin: 07/04/17 10:26 Dose: 40 mg Pneumococcal Polyvalent Vaccine (Pneumovax 23 Vaccine) 0.5 ml IM .ONCE ONE Stop: 07/05/17 10:01 - Labs Labs: 07/03/17 06:47 07/03/17 06:47 PT 11.4 SECONDS (9.7-12.2) 07/03/17 06:47 INR 1.0 07/03/17 06:47 APTT 30 SECONDS (21-34) 07/03/17 06:47 - Constitutional Appears: Well - Head Exam Head Exam: ATRAUMATIC, NORMAL INSPECTION, NORMOCEPHALIC - Eye Exam Eye Exam: EOMI, Normal appearance, PERRL Pupil Exam: NORMAL ACCOMODATION, PERRL - ENT Exam ENT Exam: Mucous Membranes Moist, Normal Exam - Neck Exam Neck Exam: Full ROM, Normal Inspection. absent: Lymphadenopathy - Respiratory Exam Respiratory Exam: Decreased Breath Sounds - Cardiovascular Exam Cardiovascular Exam: REGULAR RHYTHM, +S1, +S2 - GI/Abdominal Exam GI & Abdominal Exam: Soft, Diminished Bowel Sounds - Rectal Exam Rectal Exam: Deferred Assessment and Plan - Assessment and Plan (Free Text) Plan: Chest pain - R/o ACS Admit to tele Troponin negative x 1 EKG (07/03/17): NSR @ ; LBB; Dr. Britt, reporting consultant - f/u reccs f/u ECHO CHF Unknown type - f/u ECHO BNP 1780 CXR (07/02/17): Pulm venous congestion - increased since prior exam. Dr. Britt, reporting consultant - f/u reccs Lasix 40mg IV Daily SOB Etiology: CHF exacerbation CT CHEST (07/02/17): No pulm embolus. Nonspecific b/l reticulonodular infiltrates are subtle in b/l upper lobes predominantly. No definite alveolitis b/l of compression atelectasis is related to right > left pleural effusions. Mild b/l plueral effusion greater right than left. Cardiomegaly. No definite pulm vasc congestion. Distended GB w layering sludge or limited cholelithiasis at dependent portion. Dr. Merida, Pulm consult - f/u reccs Duonebs Q6H [facility] Azithromycin 500mg IV daily (start 07/03/17) Pleural effusions Etiology: Most likely CHF CT CHEST (07/02/17): No pulm embolus. Nonspecific b/l reticulonodular infiltrates are subtle in b/l upper lobes predominantly. No definite alveolitis b/l of compression atelectasis is related to right > left pleural effusions. Mild b/l plueral effusion greater right than left. Cardiomegaly. No definite pulm vasc congestion. Distended GB w layering sludge or limited cholelithiasis at dependent portion. Diabetes Mellitus f/u A1c Accuchecks Hypoglycemia protocol MISS ASA 325mg PO Daily Proteinuria UA (07/03/17): 2+ protein Monitor Prophylaxis Lovenox 40mg SC daily Protonix 40mg PO daily SCDs
[2017-07-05] MEDS: Albuterol-Ipratrop 3 mg / 0.5 (3 ml) UD INH SCH ×4 (01:26→19:19)
--- NOTE | 2017-07-05 06:47 | CARD ---
APPROVED REPORT EXAM: Two-dimensional and M-mode echocardiogram with Doppler and color Doppler. Other Information Quality : GoodRhythm : INDICATION Dyspnea Chest Pain Congestive Heart Failure RISK FACTORS Hypertension Diabetes 2D DIMENSIONS IVSd1.0 (0.7-1.1cm)LVDd5.6 (3.9-5.9cm) PWd0.8 (0.7-1.1cm)LVDs4.9 (2.5-4.0cm) FS (%) 13.8 %LVEF (%)29.2 (>50%) M-Mode DIMENSIONS Left Atrium (MM)3.80 (2.5-4.0cm)Aortic Root2.89 (2.2-3.7cm) Aortic Cusp Exc.1.84 (1.5-2.0cm) Mitral Valve MV E Fjixnwct678.9cm/sE/A ratio0.0 TDI E/Lateral E'0.0E/Medial E'0.0 Tricuspid Valve TR Peak [id number]/sTR Peak [id number] LEFT VENTRICLE The Left Ventricle is mildly dilated. There is normal left ventricular wall thickness. Left ventricle systolic function is severely impaired. The Ejection Fraction is 25-30%. There is severe global hypokinesis of the left ventricle. The left ventricular diastolic function is normal. No left ventricle thrombus noted on this study. RIGHT VENTRICLE The right ventricle is normal size. There is normal right ventricular wall thickness. Systolic function is severely reduced. ATRIA The left atrium size is normal. The right atrium size is normal. The interatrial septum is intact with no evidence for an atrial septal defect. The atrial septum is mildly aneurysmal. AORTIC VALVE The aortic valve is normal in structure. No aortic regurgitation is present. There is no aortic valvular stenosis. There is no aortic valvular vegetation. MITRAL VALVE The mitral valve is normal in structure. There is no evidence of mitral valve prolapse. There is no mitral valve stenosis. Mitral regurgitation is mild to moderate. TRICUSPID VALVE The tricuspid valve is normal in structure. There is mild tricuspid regurgitation. Right ventricular systolic pressure is estimated at 50-60 mmHg. There is severe pulmonary hypertension. PULMONIC VALVE The pulmonic valve is not well visualized. There is mild pulmonic valvular regurgitation. GREAT VESSELS The aortic root is normal in size. PERICARDIAL EFFUSION There is no significant pericardial effusion. <Conclusion> Left ventricle systolic function is severely impaired. The Ejection Fraction is 25-30%. There is severe global hypokinesis of the left ventricle. No aortic regurgitation is present. Mitral regurgitation is mild to moderate. There is mild tricuspid regurgitation. There is severe pulmonary hypertension. There is mild pulmonic valvular regurgitation. No left ventricle thrombus noted on this study.
[2017-07-05] MEDS ORDERED: Iodixanol 320 MG/ML 200 ML BOTTLE IV ONE (07:31)
[2017-07-05] MEDS ORDERED: Midazolam 2 MG/2 ML VIAL ONE (07:32)
[2017-07-05] MEDS: (Novolog) Insulin Aspart, Recombinant 100 u/ml 10 ml vial SC SCH ×4 (08:01→21:14)
[2017-07-05 08:03] LABS: BASO % 0.8 % (0.0-2.0); EOS # 0.2 K/uL (0.0-0.7); HEMOGLOBIN 13.5 g/dL (12.0-18.0); LYMPH # 1.2 K/uL (1.0-4.3); LYMPH % 20.8 % (20.0-40.0); MEAN CORPUSCULAR HEMOGLOBIN 33.5 pg (27.0-31.0); MEAN CORPUSCULAR HGB CONC 34.5 g/dL (33.0-37.0); MEAN PLATELET VOLUME 10.8 fL (7.2-11.7); MONO # 0.5 K/uL (0.0-0.8); MONO % 8.5 % (0.0-10.0); NEUT # 3.8 K/uL (1.8-7.0); NEUT % 65.9 % (50.0-75.0); NRBC % 0.1 % (0.0-2.0); RBC 4.04 Mil/uL (4.40-5.90); RED CELL DISTRIBUTION WIDTH 14.4 % (11.5-14.5); WHITE BLOOD COUNT 5.8 K/uL (4.8-10.8)
[2017-07-05 08:20] LABS: ALB/GLOB RATIO 1.4 (1.0-2.1); ALBUMIN 4.1 g/dL (3.5-5.0); ALT/SGPT 29 U/L (21-72); AST/SGOT 23 U/L (17-59); BLOOD UREA NITROGEN 16 mg/dL (9-20); GFR AFRICAN-AMERICAN > 60; GFR NON-AFRICAN AMERICAN > 60
[2017-07-05] MEDS ORDERED: Pneumococcal 23-Valent Vaccine IM ONE (10:00)
--- NOTE | 2017-07-05 10:49 | CP.PCM.PN ---
Subjective - Date & Time of Evaluation Date of Evaluation: 07/05/17 Time of Evaluation: 07:05 - Subjective Subjective: Patient seen and examined at bedside. Nursing reports no acute events overnight. Patient denies chest pain overnight. Patient is aware of cardiac cath procedure today. He denies having fever, chills, shortness of breath, chest pain, nausea, or vomiting. Objective - Vital Signs/Intake and Output Vital Signs (last 24 hours): Temp Pulse Resp BP Pulse Ox 98.2 F 93 H 20 134/88 98 07/05/17 07:00 07/05/17 07:00 07/05/17 07:00 07/05/17 07:00 07/05/17 07:00 Intake and Output: 07/05/17 07/05/17 06:59 18:59 Intake Total 500 Balance 500 - Medications Medications: Current Medications Albuterol/Ipratropium (Duoneb 3 Mg/0.5 Mg (3 Ml) Ud) 3 ml INH RQ6 [facility] Last Admin: 07/05/17 01:26 Dose: 3 ml Aspirin (Aspirin) 325 mg PO DAILY [facility] Last Admin: 07/04/17 10:26 Dose: 325 mg Dextrose (Dextrose 50% Inj) 0 ml IV STAT PRN; Protocol PRN Reason: Hypoglycemia Protocol Dextrose (Glutose 15) 0 gm PO ONCE PRN; Protocol PRN Reason: Hypoglycemia Protocol Enoxaparin Sodium (Lovenox) 40 mg SC DAILY [facility] Last Admin: 07/04/17 10:26 Dose: 40 mg Furosemide (Lasix) 40 mg IVP DAILY [facility] Last Admin: 07/04/17 10:38 Dose: 40 mg Glucagon (Glucagen Diagnostic Kit) 0 mg IM STAT PRN; Protocol PRN Reason: Hypoglycemia Protocol Azithromycin 500 mg/ Sodium (Chloride) 250 mls @ 250 mls/hr IVPB DAILY [facility] PRN Reason: Protocol Stop: 07/07/17 10:01 Last Admin: 07/04/17 10:24 Dose: 250 mls/hr Dextrose (Dextrose 5% In Water 1000 Ml) 1,000 mls @ 0 mls/hr IV .Q0M PRN; Protocol; Per Protocol PRN Reason: Hypoglycemia Protocol Insulin Aspart (Novolog) 0 unit SC ACHS [facility] PRN Reason: Protocol Last Admin: 07/05/17 08:01 Dose: Not Given Pantoprazole Sodium (Protonix Ec Tab) 40 mg PO DAILY [facility] Last Admin: 07/04/17 10:26 Dose: 40 mg Temazepam (Restoril) 15 mg PO HS PRN PRN Reason: Insomnia Last Admin: 07/04/17 23:34 Dose: 15 mg - Labs Labs: 07/05/17 07:40 07/05/17 07:40 PT 11.4 SECONDS (9.7-12.2) 07/03/17 06:47 INR 1.0 07/03/17 06:47 APTT 30 SECONDS (21-34) 07/03/17 06:47 - Additional Findings Additional findings: - Constitutional Appears: Non-toxic, No Acute Distress - Head Exam Head Exam: ATRAUMATIC, NORMAL INSPECTION - Eye Exam Eye Exam: EOMI. absent: Scleral icterus Pupil Exam: PERRL - ENT Exam ENT Exam: Mucous Membranes Moist Additional comments: no jvd - Neck Exam Neck Exam: Full ROM - Respiratory Exam Respiratory Exam: Clear to Ausculation Bilateral, NORMAL BREATHING PATTERN. absent: Rales, Rhonchi, Wheezes - Cardiovascular Exam Cardiovascular Exam: REGULAR RHYTHM, +S1, +S2 - GI/Abdominal Exam GI & Abdominal Exam: Soft, Normal Bowel Sounds. absent: Tenderness - Extremities Exam Extremities Exam: Normal Inspection. absent: Pedal Edema - Back Exam Back Exam: absent: CVA tenderness (L), CVA tenderness (R) - Neurological Exam Neurological Exam: Alert, Awake, Oriented x3 - Psychiatric Exam Psychiatric exam: Normal Affect - Skin Skin Exam: Normal Color, Warm Assessment and Plan - Assessment and Plan (Free Text) Assessment: Chest pain - R/o ACS Admit to tele Troponin negative x 1 EKG (07/03/17): NSR @ ; LBB; Dr. Britt, media consultant outside sales Echocardiogram shows severe LV dysfunction with regional wall motion abnormalities suggestive of CAD Cardiac cath shows Severe LV dsyfunction and RCA stenosis Start ASA 81mg and Brilinta 90mg BID Follow further cardio recs CHF Echocardiogram shows severe LV dysfunction with regional wall motion abnormalities suggestive of CAD BNP 1780 CXR (07/02/17): Pulm venous congestion - increased since prior exam. Dr. Britt, media consultant outside sales - f/u reccs Lasix 40mg IV Daily Coreg 12.5mg BID SOB Etiology: CHF exacerbation CT CHEST (07/02/17): No pulm embolus. Nonspecific b/l reticulonodular infiltrates are subtle in b/l upper lobes predominantly. No definite alveolitis b/l of compression atelectasis is related to right > left pleural effusions. Mild b/l plueral effusion greater right than left. Cardiomegaly. No definite pulm vasc congestion. Distended GB w layering sludge or limited cholelithiasis at dependent portion. Dr. Merida, Pulm consult - f/u reccs Duonebs Q6H [facility] Azithromycin 500mg IV daily (start 07/03/17) Pleural effusions Etiology: Most likely CHF CT CHEST (07/02/17): No pulm embolus. Nonspecific b/l reticulonodular infiltrates are subtle in b/l upper lobes predominantly. No definite alveolitis b/l of compression atelectasis is related to right > left pleural effusions. Mild b/l plueral effusion greater right than left. Cardiomegaly. No definite pulm vasc congestion. Distended GB w layering sludge or limited cholelithiasis at dependent portion. Diabetes Mellitus A1c 9.9 Accuchecks Hypoglycemia protocol MISS ASA 325mg PO Daily Proteinuria UA (07/03/17): 2+ protein Monitor Prophylaxis Lovenox 40mg SC daily Protonix 40mg PO daily [facility]CDs Case discussed with attending physician All management per Dr. Moore
[2017-07-05] MEDS: Azithromycin 500 MG in Sodium Chloride 0.9% 250 ML IVPB SCH (11:32)
[2017-07-05] MEDS: Pantoprazole 40 mg EC Tab PO SCH (11:33)
[2017-07-05] MEDS: Enoxaparin 40 mg Syringe SC SCH (11:38)
--- NOTE | 2017-07-05 11:45 | CP.PCM.PN ---
Subjective - Date & Time of Evaluation Date of Evaluation: 07/05/17 Time of Evaluation: 08:20 - Subjective Subjective: Patient does not have chest pain. He complains of dyspnea on exertion. Objective - Vital Signs/Intake and Output Vital Signs (last 24 hours): Temp Pulse Resp BP Pulse Ox 98.2 F 94 H 20 129/86 98 07/05/17 07:00 07/05/17 11:32 07/05/17 07:00 07/05/17 11:32 07/05/17 07:00 Intake and Output: 07/05/17 07/05/17 06:59 18:59 Intake Total 500 Balance 500 - Medications Medications: Current Medications Albuterol/Ipratropium (Duoneb 3 Mg/0.5 Mg (3 Ml) Ud) 3 ml INH RQ6 [facility] Last Admin: 07/05/17 01:26 Dose: 3 ml Aspirin (Aspirin) 325 mg PO DAILY [facility] Last Admin: 07/04/17 10:26 Dose: 325 mg Dextrose (Dextrose 50% Inj) 0 ml IV STAT PRN; Protocol PRN Reason: Hypoglycemia Protocol Dextrose (Glutose 15) 0 gm PO ONCE PRN; Protocol PRN Reason: Hypoglycemia Protocol Enoxaparin Sodium (Lovenox) 40 mg SC DAILY [facility] Last Admin: 07/04/17 10:26 Dose: 40 mg Furosemide (Lasix) 40 mg IVP DAILY [facility] Last Admin: 07/04/17 10:38 Dose: 40 mg Glucagon (Glucagen Diagnostic Kit) 0 mg IM STAT PRN; Protocol PRN Reason: Hypoglycemia Protocol Azithromycin 500 mg/ Sodium (Chloride) 250 mls @ 250 mls/hr IVPB DAILY [facility] PRN Reason: Protocol Stop: 07/07/17 10:01 Last Admin: 07/05/17 11:32 Dose: 250 mls/hr Dextrose (Dextrose 5% In Water 1000 Ml) 1,000 mls @ 0 mls/hr IV .Q0M PRN; Protocol; Per Protocol PRN Reason: Hypoglycemia Protocol Insulin Aspart (Novolog) 0 unit SC ACHS [facility] PRN Reason: Protocol Last Admin: 07/05/17 08:01 Dose: Not Given Pantoprazole Sodium (Protonix Ec Tab) 40 mg PO DAILY [facility] Last Admin: 07/04/17 10:26 Dose: 40 mg Temazepam (Restoril) 15 mg PO HS PRN PRN Reason: Insomnia Last Admin: 07/04/17 23:34 Dose: 15 mg - Labs Labs: 07/05/17 07:40 07/05/17 07:40 PT 11.4 SECONDS (9.7-12.2) 07/03/17 06:47 INR 1.0 07/03/17 06:47 APTT 30 SECONDS (21-34) 07/03/17 06:47 - Constitutional Appears: Non-toxic - Head Exam Head Exam: NORMAL INSPECTION - Eye Exam Eye Exam: Normal appearance - ENT Exam ENT Exam: Mucous Membranes Moist - Neck Exam Neck Exam: Full ROM - Respiratory Exam Respiratory Exam: NORMAL BREATHING PATTERN - Cardiovascular Exam Cardiovascular Exam: REGULAR RHYTHM - GI/Abdominal Exam GI & Abdominal Exam: Normal Bowel Sounds - Rectal Exam Rectal Exam: Deferred - Extremities Exam Extremities Exam: Full ROM - Back Exam Back Exam: NORMAL INSPECTION - Neurological Exam Neurological Exam: Alert, Oriented x3 - Psychiatric Exam Psychiatric exam: Normal Mood - Skin Skin Exam: Normal Color Assessment and Plan (1) Chest pain Assessment & Plan: I reviewed the echocardiogram. There is severe LV dysfunction with regional wall motion abnormalities suggestive of CAD. I recommend cardiac cath to evaluate for CAD. Status: Acute (2) HTN (hypertension) Assessment & Plan: blood pressure Status: Acute (3) Diabetes mellitus Assessment & Plan: risk factor for CAD. for cath. Status: Acute
--- NOTE | 2017-07-05 11:52 | CP.PCM.PN ---
Subjective - Date & Time of Evaluation Date of Evaluation: 07/05/17 Time of Evaluation: 11:50 - Subjective Subjective: cardiac cath performed Severe LV dsyfunction Severe stenosis of the RCA markedly elevated LVEDP. Plan aggrestive medical therapy Add ASA/Brilinta d/c home tomorrow schedule for outpatient PCI RCA with Impella support. Objective - Vital Signs/Intake and Output Vital Signs (last 24 hours): Temp Pulse Resp BP Pulse Ox 98.2 F 94 H 20 129/86 98 07/05/17 07:00 07/05/17 11:32 07/05/17 07:00 07/05/17 11:34 07/05/17 07:00 Intake and Output: 07/05/17 07/05/17 06:59 18:59 Intake Total 500 Balance 500 - Medications Medications: Current Medications Albuterol/Ipratropium (Duoneb 3 Mg/0.5 Mg (3 Ml) Ud) 3 ml INH RQ6 [facility] Last Admin: 07/05/17 01:26 Dose: 3 ml Aspirin (Aspirin) 81 mg PO DAILY [facility] Carvedilol (Coreg) 12.5 mg PO BID [facility] Dextrose (Dextrose 50% Inj) 0 ml IV STAT PRN; Protocol PRN Reason: Hypoglycemia Protocol Dextrose (Glutose 15) 0 gm PO ONCE PRN; Protocol PRN Reason: Hypoglycemia Protocol Enoxaparin Sodium (Lovenox) 40 mg SC DAILY [facility] Last Admin: 07/05/17 11:38 Dose: 40 mg Furosemide (Lasix) 40 mg IVP DAILY [facility] Last Admin: 07/05/17 11:34 Dose: 40 mg Glucagon (Glucagen Diagnostic Kit) 0 mg IM STAT PRN; Protocol PRN Reason: Hypoglycemia Protocol Azithromycin 500 mg/ Sodium (Chloride) 250 mls @ 250 mls/hr IVPB DAILY [facility] PRN Reason: Protocol Stop: 07/07/17 10:01 Last Admin: 07/05/17 11:32 Dose: 250 mls/hr Dextrose (Dextrose 5% In Water 1000 Ml) 1,000 mls @ 0 mls/hr IV .Q0M PRN; Protocol; Per Protocol PRN Reason: Hypoglycemia Protocol Insulin Aspart (Novolog) 0 unit SC ACHS [facility] PRN Reason: Protocol Last Admin: 07/05/17 08:01 Dose: Not Given Pantoprazole Sodium (Protonix Ec Tab) 40 mg PO DAILY [facility] Last Admin: 07/05/17 11:33 Dose: 40 mg Temazepam (Restoril) 15 mg PO HS PRN PRN Reason: Insomnia Last Admin: 07/04/17 23:34 Dose: 15 mg Ticagrelor (Brilinta) 90 mg PO BID [facility] - Labs Labs: 07/05/17 07:40 07/05/17 07:40 PT 11.4 SECONDS (9.7-12.2) 07/03/17 06:47 INR 1.0 07/03/17 06:47 APTT 30 SECONDS (21-34) 07/03/17 06:47 Assessment and Plan (1) Chest pain Status: Acute (2) HTN (hypertension) Status: Acute (3) Diabetes mellitus Status: Acute
--- NOTE | 2017-07-05 18:29 | CP.PCM.PN ---
Subjective - Date & Time of Evaluation Date of Evaluation: 07/05/17 Time of Evaluation: 11:20 - Subjective Subjective: clinically same Objective - Vital Signs/Intake and Output Vital Signs (last 24 hours): Temp Pulse Resp BP Pulse Ox 98.0 F 78 20 106/71 98 07/05/17 15:47 07/05/17 16:26 07/05/17 15:47 07/05/17 17:18 07/05/17 15:47 Intake and Output: 07/05/17 07/05/17 06:59 18:59 Intake Total 500 550 Balance 500 550 - Medications Medications: Current Medications Albuterol/Ipratropium (Duoneb 3 Mg/0.5 Mg (3 Ml) Ud) [address] [facility] Last Admin: 07/05/17 13:10 Dose: Not Given Aspirin (Aspirin Chewable) [address] [facility] Carvedilol (Coreg) 12.[address] [facility] Last Admin: 07/05/17 17:18 Dose: 12.5 mg Dextrose (Dextrose 50% Inj) 0 ml IV STAT PRN; Protocol PRN Reason: Hypoglycemia Protocol Dextrose (Glutose 15) 0 gm PO ONCE PRN; Protocol PRN Reason: Hypoglycemia Protocol Enoxaparin Sodium (Lovenox) [address] [facility] Last Admin: 07/05/17 11:38 Dose: 40 mg Furosemide (Lasix) [address] [facility] Last Admin: 07/05/17 11:34 Dose: 40 mg Glucagon (Glucagen Diagnostic Kit) 0 mg IM STAT PRN; Protocol PRN Reason: Hypoglycemia Protocol Azithromycin 500 mg/ Sodium (Chloride) 250 mls @ 250 mls/hr IVPB DAILY [facility] PRN Reason: Protocol Stop: 07/07/17 10:01 Last Admin: 07/05/17 11:32 Dose: 250 mls/hr Dextrose (Dextrose 5% In Water 1000 Ml) 1,000 mls @ 0 mls/hr IV .Q0M PRN; Protocol; Per Protocol PRN Reason: Hypoglycemia Protocol Insulin Aspart (Novolog) [address] [facility] PRN Reason: Protocol Last Admin: 07/05/17 17:16 Dose: 3 unit Pantoprazole Sodium (Protonix Ec Tab) [address] [facility] Last Admin: 07/05/17 11:33 Dose: 40 mg Pneumococcal Polyvalent Vaccine (Pneumovax 23 Vaccine) 0.5 ml IM .ONCE ONE Stop: 07/07/19 18:01 Temazepam (Restoril) 15 mg PO HS PRN PRN Reason: Insomnia Last Admin: 07/04/17 23:34 Dose: 15 mg Ticagrelor (Brilinta) 90 mg PO BID [facility] Last Admin: 07/05/17 17:15 Dose: 90 mg - Labs Labs: 07/05/17 07:40 07/05/17 07:40 PT 11.4 SECONDS (9.7-12.2) 07/03/17 06:47 INR 1.0 07/03/17 06:47 APTT 30 SECONDS (21-34) 07/03/17 06:47 - Constitutional Appears: Well - Head Exam Head Exam: ATRAUMATIC, NORMAL INSPECTION, NORMOCEPHALIC - Eye Exam Eye Exam: EOMI, Normal appearance, PERRL Pupil Exam: NORMAL ACCOMODATION, PERRL - ENT Exam ENT Exam: Mucous Membranes Moist, Normal Exam - Neck Exam Neck Exam: Full ROM, Normal Inspection. absent: Lymphadenopathy - Respiratory Exam Respiratory Exam: Decreased Breath Sounds - Cardiovascular Exam Cardiovascular Exam: REGULAR RHYTHM, +S1, +S2 - GI/Abdominal Exam GI & Abdominal Exam: Soft, Diminished Bowel Sounds - Rectal Exam Rectal Exam: Deferred
[2017-07-06] MEDS: Albuterol-Ipratrop 3 mg / 0.5 (3 ml) UD INH SCH ×3 (01:55→13:27)
[2017-07-06 07:16] LABS: BASO # 0.1 K/uL (0.0-0.2); BASO % 0.9 % (0.0-2.0); EOS # 0.3 K/uL (0.0-0.7); EOS % 4.6 % (0.0-4.0); HEMOGLOBIN 14.3 g/dL (12.0-18.0); LYMPH # 1.1 K/uL (1.0-4.3); LYMPH % 19.4 % (20.0-40.0); MEAN CELL VOLUME 98.4 fL (80.0-94.0); MEAN CORPUSCULAR HEMOGLOBIN 33.4 pg (27.0-31.0); MEAN CORPUSCULAR HGB CONC 33.9 g/dL (33.0-37.0); MONO # 0.4 K/uL (0.0-0.8); NEUT % 68.1 % (50.0-75.0); NRBC % 0.2 % (0.0-2.0); RBC 4.27 Mil/uL (4.40-5.90); RED CELL DISTRIBUTION WIDTH 14.4 % (11.5-14.5); WHITE BLOOD COUNT 5.8 K/uL (4.8-10.8)
--- NOTE | 2017-07-06 07:31 | CP.PCM.PN ---
Subjective - Date & Time of Evaluation Date of Evaluation: 07/06/17 Time of Evaluation: 07:30 - Subjective Subjective: PGY-[address] Moore's service: Patient seen and examined at bedside. Nursing reports no acute events overnight. Patient denies chest pain, SOB, or palpitations overnight. Had long conversation with patient about importance of close outpatient follow with cardiology. Pt for discharge today. Objective - Vital Signs/Intake and Output Vital Signs (last 24 hours): Temp Pulse Resp BP Pulse Ox 97.5 F L 70 18 118/76 95 07/05/17 23:30 07/05/17 23:30 07/05/17 23:30 07/05/17 23:30 07/05/17 23:30 - Medications Medications: Current Medications Albuterol/Ipratropium (Duoneb 3 Mg/0.5 Mg (3 Ml) Ud) 3 ml INH RQ6 [facility] Last Admin: 07/06/17 01:55 Dose: Not Given Aspirin (Aspirin Chewable) 81 mg PO DAILY [facility] Carvedilol (Coreg) 12.5 mg PO BID [facility] Last Admin: 07/05/17 17:18 Dose: 12.5 mg Dextrose (Dextrose 50% Inj) 0 ml IV STAT PRN; Protocol PRN Reason: Hypoglycemia Protocol Dextrose (Glutose 15) 0 gm PO ONCE PRN; Protocol PRN Reason: Hypoglycemia Protocol Enoxaparin Sodium (Lovenox) 40 mg SC DAILY [facility] Last Admin: 07/05/17 11:38 Dose: 40 mg Furosemide (Lasix) 40 mg IVP DAILY [facility] Last Admin: 07/05/17 11:34 Dose: 40 mg Glucagon (Glucagen Diagnostic Kit) 0 mg IM STAT PRN; Protocol PRN Reason: Hypoglycemia Protocol Azithromycin 500 mg/ Sodium (Chloride) 250 mls @ 250 mls/hr IVPB DAILY [facility] PRN Reason: Protocol Stop: 07/07/17 10:01 Last Admin: 07/05/17 11:32 Dose: 250 mls/hr Dextrose (Dextrose 5% In Water 1000 Ml) 1,000 mls @ 0 mls/hr IV .Q0M PRN; Protocol; Per Protocol PRN Reason: Hypoglycemia Protocol Insulin Aspart (Novolog) 0 unit SC ACHS [facility] PRN Reason: Protocol Last Admin: 07/05/17 21:14 Dose: Not Given Pantoprazole Sodium (Protonix Ec Tab) 40 mg PO DAILY [facility] Last Admin: 07/05/17 11:33 Dose: 40 mg Pneumococcal Polyvalent Vaccine (Pneumovax 23 Vaccine) 0.5 ml IM .ONCE ONE Stop: 07/07/19 18:01 Temazepam (Restoril) 15 mg PO HS PRN PRN Reason: Insomnia Last Admin: 07/05/17 21:21 Dose: 15 mg Ticagrelor (Brilinta) 90 mg PO BID [facility] Last Admin: 07/05/17 17:15 Dose: 90 mg - Labs Labs: 07/06/17 06:51 07/05/17 07:40 PT 11.4 SECONDS (9.7-12.2) 07/03/17 06:47 INR 1.0 07/03/17 06:47 APTT 30 SECONDS (21-34) 07/03/17 06:47 - Additional Findings Additional findings: - Constitutional Appears: Non-toxic, No Acute Distress - Head Exam Head Exam: ATRAUMATIC, NORMAL INSPECTION - Eye Exam Eye Exam: EOMI. absent: Scleral icterus Pupil Exam: PERRL - ENT Exam ENT Exam: Mucous Membranes Moist Additional comments: no jvd - Neck Exam Neck Exam: Full ROM - Respiratory Exam Respiratory Exam: Clear to Ausculation Bilateral, NORMAL BREATHING PATTERN. absent: Rales, Rhonchi, Wheezes - Cardiovascular Exam Cardiovascular Exam: REGULAR RHYTHM, +S1, +S2 - GI/Abdominal Exam GI & Abdominal Exam: Soft, Normal Bowel Sounds. absent: Tenderness - Extremities Exam Extremities Exam: Normal Inspection. absent: Pedal Edema - Back Exam Back Exam: absent: CVA tenderness (L), CVA tenderness (R) - Neurological Exam Neurological Exam: Alert, Awake, Oriented x3 - Psychiatric Exam Psychiatric exam: Normal Affect - Skin Skin Exam: Normal Color, Warm Assessment and Plan - Assessment and Plan (Free Text) Plan: Chest pain - R/o ACS Admit to tele Troponin negative x 1 EKG (07/03/17): NSR @ ; LBB; Dr. Britt, inside solar sales consultant Echocardiogram shows severe LV dysfunction with regional wall motion abnormalities suggestive of CAD Cardiac cath shows Severe LV dsyfunction and RCA stenosis Start ASA 81mg and Brilinta 90mg BID Follow further cardio recs CHF Echocardiogram shows severe LV dysfunction with regional wall motion abnormalities suggestive of CAD BNP 1780 CXR (07/02/17): Pulm venous congestion - increased since prior exam. Dr. Britt, inside solar sales consultant - aggressive med management Lasix 40mg IV Daily Coreg 12.5mg BID SOB Etiology: CHF exacerbation CT CHEST (07/02/17): No pulm embolus. Nonspecific b/l reticulonodular infiltrates are subtle in b/l upper lobes predominantly. No definite alveolitis b/l of compression atelectasis is related to right > left pleural effusions. Mild b/l plueral effusion greater right than left. Cardiomegaly. No definite pulm vasc congestion. Distended GB w layering sludge or limited cholelithiasis at dependent portion. Dr. Merida, Pulm consult - f/u reccs Duonebs Q6H [facility] Azithromycin 500mg IV daily (start 07/03/17) Pleural effusions Etiology: Most likely CHF CT CHEST (07/02/17): No pulm embolus. Nonspecific b/l reticulonodular infiltrates are subtle in b/l upper lobes predominantly. No definite alveolitis b/l of compression atelectasis is related to right > left pleural effusions. Mild b/l plueral effusion greater right than left. Cardiomegaly. No definite pulm vasc congestion. Distended GB w layering sludge or limited cholelithiasis at dependent portion. Diabetes Mellitus A1c 9.9 Accuchecks Hypoglycemia protocol MISS ASA 325mg PO Daily Proteinuria UA (07/03/17): 2+ protein Monitor Prophylaxis Lovenox 40mg SC daily Protonix 40mg PO daily SCDs Disposition: Pt for discharge. Close f/u with Cardio. Will need outpatient PCI. Case discussed with attending physician All management per Dr. Moore
--- NOTE | 2017-07-06 08:11 | CP.PCM.PN ---
Subjective - Date & Time of Evaluation Date of Evaluation: 07/06/17 Time of Evaluation: 08:00 - Subjective Subjective: patient has no current chest pain or dyspnea Objective - Vital Signs/Intake and Output Vital Signs (last 24 hours): Temp Pulse Resp BP Pulse Ox 97.5 F L 70 18 118/76 95 07/05/17 23:30 07/05/17 23:30 07/05/17 23:30 07/05/17 23:30 07/05/17 23:30 - Medications Medications: Current Medications Albuterol/Ipratropium (Duoneb 3 Mg/0.5 Mg (3 Ml) Ud) 3 ml INH RQ6 [facility] Last Admin: 07/06/17 07:32 Dose: 3 ml Aspirin (Aspirin Chewable) 81 mg PO DAILY [facility] Carvedilol (Coreg) 12.5 mg PO BID [facility] Last Admin: 07/05/17 17:18 Dose: 12.5 mg Dextrose (Dextrose 50% Inj) 0 ml IV STAT PRN; Protocol PRN Reason: Hypoglycemia Protocol Dextrose (Glutose 15) 0 gm PO ONCE PRN; Protocol PRN Reason: Hypoglycemia Protocol Enoxaparin Sodium (Lovenox) 40 mg SC DAILY [facility] Last Admin: 07/05/17 11:38 Dose: 40 mg Furosemide (Lasix) 40 mg IVP DAILY [facility] Last Admin: 07/05/17 11:34 Dose: 40 mg Glucagon (Glucagen Diagnostic Kit) 0 mg IM STAT PRN; Protocol PRN Reason: Hypoglycemia Protocol Azithromycin 500 mg/ Sodium (Chloride) 250 mls @ 250 mls/hr IVPB DAILY [facility] PRN Reason: Protocol Stop: 07/07/17 10:01 Last Admin: 07/05/17 11:32 Dose: 250 mls/hr Dextrose (Dextrose 5% In Water 1000 Ml) 1,000 mls @ 0 mls/hr IV .Q0M PRN; Protocol; Per Protocol PRN Reason: Hypoglycemia Protocol Insulin Aspart (Novolog) 0 unit SC ACHS [facility] PRN Reason: Protocol Last Admin: 07/05/17 21:14 Dose: Not Given Pantoprazole Sodium (Protonix Ec Tab) 40 mg PO DAILY [facility] Last Admin: 07/05/17 11:33 Dose: 40 mg Pneumococcal Polyvalent Vaccine (Pneumovax 23 Vaccine) 0.5 ml IM .ONCE ONE Stop: 07/07/19 18:01 Temazepam (Restoril) 15 mg PO HS PRN PRN Reason: Insomnia Last Admin: 07/05/17 21:21 Dose: 15 mg Ticagrelor (Brilinta) 90 mg PO BID [facility] Last Admin: 07/05/17 17:15 Dose: 90 mg - Labs Labs: 07/06/17 06:51 07/05/17 07:40 PT 11.4 SECONDS (9.7-12.2) 07/03/17 06:47 INR 1.0 07/03/17 06:47 APTT 30 SECONDS (21-34) 07/03/17 06:47 - Constitutional Appears: Non-toxic - Head Exam Head Exam: NORMAL INSPECTION - Eye Exam Eye Exam: Normal appearance - ENT Exam ENT Exam: Mucous Membranes Moist - Neck Exam Neck Exam: Full ROM - Respiratory Exam Respiratory Exam: Decreased Breath Sounds - Cardiovascular Exam Cardiovascular Exam: REGULAR RHYTHM - GI/Abdominal Exam GI & Abdominal Exam: Normal Bowel Sounds - Rectal Exam Rectal Exam: Deferred - Back Exam Back Exam: NORMAL INSPECTION - Neurological Exam Neurological Exam: Alert - Psychiatric Exam Psychiatric exam: Normal Affect - Skin Skin Exam: Normal Color Assessment and Plan (1) CAD (coronary artery disease) Assessment & Plan: cardiac cath revealed critical stenosis of the RCA and severe LV dsyfunction. ASA/ Brilint aadded. will require high risk PCI RCA with Impella support. Discussed with patient. he is stable for discharge and will schedule outpatient PCI. Status: Acute (2) HTN (hypertension) Assessment & Plan: well controlled on medical therapy Status: Acute (3) Diabetes mellitus Assessment & Plan: controlled Status: Acute (4) Ischemic cardiomyopathy Assessment & Plan: will reevaluate LV function 3 months after medical stabilzation and PCI. If EF remains <35%, will benefit from AICD Status: Acute
[2017-07-06] MEDS: (Novolog) Insulin Aspart, Recombinant 100 u/ml 10 ml vial SC SCH ×2 (08:12→12:10)
[2017-07-06 08:29] LABS: ALB/GLOB RATIO 1.1 (1.0-2.1); ALBUMIN 3.9 g/dL (3.5-5.0); ALT/SGPT 29 U/L (21-72); AST/SGOT 31 U/L (17-59); BLOOD UREA NITROGEN 22 mg/dL (9-20); CALCIUM 9.3 mg/dl (8.6-10.4); GFR AFRICAN-AMERICAN > 60; GFR NON-AFRICAN AMERICAN > 60
[2017-07-06 08:58] VITALS: RESP 20; TEMP 98; O2SAT 97
[2017-07-06] MEDS: Pantoprazole 40 mg EC Tab PO SCH (09:41)
[2017-07-06] MEDS: Enoxaparin 40 mg Syringe SC SCH (09:42)
[2017-07-06] MEDS: Azithromycin 500 MG in Sodium Chloride 0.9% 250 ML IVPB SCH (09:42)
[2017-07-06 09:44] VITALS: BP 113/74
[2017-07-06 12:17] VITALS: PULSE 74
[2017-07-06] MEDS ORDERED: Pneumococcal 23-Valent Vaccine IM ONE (14:30)
--- NOTE | 2017-07-07 08:22 | CARDCATH ---
PROCEDURE DATE: 07/05/2017 PROCEDURE PERFORMED: Left heart catheterization, coronary angiography, left ventriculography. INDICATIONS: Unstable angina, severe left ventricular systolic dysfunction. COMPLICATIONS: None. HISTORY: As follows: The patient is a 67-year-old male with past medical history of hypertension, hypercholesterolemia and diabetes mellitus who presents with chest pain and dyspnea on exertion. Symptoms began about 1 week prior to this admission where he described pressure like sensation in the center of his chest. This was associated with dyspnea. Initial EKG revealed sinus rhythm with left bundle-branch block. Echocardiogram was performed revealing severe left ventricular systolic dysfunction with regional wall motion abnormalities suggestive of multivessel coronary artery disease. Due to cardiovascular risk factors with symptoms and severe left ventricular dysfunction, it was decided to proceed with left heart catheterization. DESCRIPTION OF PROCEDURE: As follows: After obtaining informed consent, the patient was prepped and draped in the usual sterile fashion. The right groin was anesthetized with 2% lidocaine solution. A 6-Czech sheath was inserted into the right common femoral artery via modified Seldinger technique. Coronary angiography and left ventriculography were performed. Abdominal aortography was performed. All catheters were removed and manual pressure was applied to achieve hemostasis. FINDINGS: Hemodynamics: The left ventricular end-diastolic pressure is 40 mmHg. There is no gradient across the aortic valve. Left main arises from left sinus of Valsalva. Normal left anterior descending artery arises from left main and courses along the anterior interventricular groove. There is a 30% stenosis to the proximal vessel. There is a 50% stenosis to the mid vessel. The second diagniol branch is a 95% ostial stenosis (small caliber vessel). Left circumflex arises from the left main and courses along the left atrioventricular groove. There is a 50% to 60% stenosis of the first obtuse marginal at its origin. Right coronary artery vessel arises from the right sinus of Valsalva. It is right dominant circulation. There is a 50% to 60% stenosis of the proximal vessel. There is an 80% stenosis of the mid vessel. Left ventricle: There is severe left ventricular systolic dysfunction. The left ventricle appears mildly dilated. Left ventricular ejection fraction is 20% to 25%. There is no mitral regurgitation. No aortic stenosis. Iliac, bilateral: There is no significant common external iliac or common femoral disease. There is mild tortuosity of the left common iliac artery. CONCLUSION: 1. Severe stenosis to the right coronary artery. 2. Severe left ventricular systolic dysfunction with markedly elevated left ventricular end-diastolic pressure. PLAN: The patient will need aggressive medical therapy given severe left ventricular systolic dysfunction. I will titrate beta-flor and angiotensin receptor flor therapy. Antiplatelet therapy will be added. The patient will require intervention of the right coronary artery with possible fraction flow reserve of the left circumflex artery and left anterior descending artery. Given severe left ventricular systolic dysfunction, this procedure cannot safely be performed without use of an Impella device. Recommend aggressive medical therapy with attempted outpatient Impella assisted PCI of the right coronary artery after aggressive medical stabilization. Leila Britt MD
[2019-07-07] MEDS ORDERED: Pneumococcal 23-Valent Vaccine IM ONE (18:00)
== END 2017-07-06 15:53 | disposition home or self-care (01) | DRG 287 ==
LOC: C.ER 06:05 → C.9E 08:00 → C.6T 15:08
PROVIDERS: ADMIT Internal Medicine Nephrology; ATTEND Internal Medicine Nephrology
PROC: B2111ZZ Fluoroscopy of Multiple Coronary Arteries using Low Osmolar Contrast (ICD-10-PCS; 2017-07-05)
PROC: B2151ZZ Fluoroscopy of Left Heart using Low Osmolar Contrast (ICD-10-PCS; 2017-07-05)
PROC: 4A023N7 Measurement of Cardiac Sampling and Pressure, Left Heart, Percutaneous Approach (ICD-10-PCS; principal; 2017-07-05 08:00)
DX: I25.110 Atherosclerotic heart disease of native coronary artery with unstable angina pectoris (principal); E11.9 Type 2 diabetes mellitus without complications; I11.0 Hypertensive heart disease with heart failure; I44.7 Left bundle-branch block, unspecified; I50.9 Heart failure, unspecified; Z87.891 Personal history of nicotine dependence; E78.00 Pure hypercholesterolemia, unspecified; I25.5 Ischemic cardiomyopathy; Z79.4 Long term (current) use of insulin

== ENCOUNTER 2017-09-12 14:18 | Emergency (ER) | payer MEDICARE ==
[2017-09-12 14:41] VITALS: RESP 18
--- NOTE | 2017-09-12 17:16 | C.PDOC ---
History Of Present Illness 67 y/o male presents to ED with c/o worsening leg swelling for 11 days after he ran out of Lasix. Patient was seen admitted to hospital and discharged with prescriptions, was advised to follow up with Dr. Britt and states he was unable to follow up secondary to doctor not accepting his insurance. Patient reports when he had Lasix and was compliant no swelling of legs has noted, recently swelling has extended to above knees. Patient currently denies chest pain, dyspnea on exertion, fever, chills or any other complaints at this time. cardiac cath revealed critical stenosis of the RCA and severe LV dsyfunction. ASA/ Brilint aadded. will require high risk PCI RCA with Impella support. Discussed with patient. he is stable for discharge and will schedule outpatient PCI. (4) Ischemic cardiomyopathy Assessment & Plan: will reevaluate LV function 3 months after medical stabilzation and PCI. If EF remains <35%, will benefit from AICD EKG (07/03/17): NSR @ ; [facility]; Dr. Britt, senior product consultant Echocardiogram shows severe LV dysfunction with regional wall motion abnormalities suggestive of CAD Cardiac cath shows Severe LV dsyfunction and RCA stenosis Time Seen by Provider: 09/12/17 17:15 Chief Complaint (Nursing): Lower Extremity Problem/Injury History Per: Patient History/Exam Limitations: no limitations Onset/Duration Of Symptoms: Days Current Symptoms Are (Timing): Still Present Past Medical History Reviewed: Historical Data, Nursing Documentation, Vital Signs Vital Signs: Last Vital Signs Temp 97.5 F L 09/12/17 17:42 Pulse 85 09/12/17 17:42 Resp 18 09/12/17 17:42 BP 137/94 H 09/12/17 17:42 Pulse Ox 99 09/12/17 17:49 - Medical History PMH: HTN Surgical History: No Surg Hx - [facility] Procedures DRAINAGE OF R LOW LEG SUBCU/FASCIA, OPEN APPROACH (08/08/15) FLUOROSCOPY OF LEFT HEART USING LOW OSMOLAR CONTRAST (07/03/17) FLUOROSCOPY OF MULT COR ART USING L OSM CONTRAST (07/03/17) MEASURE OF CARDIAC SAMPL & PRESSURE, L HEART, PERC APPROACH (07/03/17) Family History: States: No Known Family Hx - Social History Hx Alcohol Use: Yes Hx Substance Use: No - Immunization History Hx Tetanus Toxoid Vaccination: No Hx Influenza Vaccination: No Hx Pneumococcal Vaccination: No Review Of Systems Constitutional: Negative for: Fever, Chills Cardiovascular: Negative for: Chest Pain, Orthopnea Respiratory: Negative for: Cough, SOB with Excertion Gastrointestinal: Negative for: Nausea, Vomiting Musculoskeletal: Positive for: Other (leg swelling) Physical Exam - Physical Exam Appears: Non-toxic, No Acute Distress Skin: Warm, Dry, No Rash Head: Atraumatic, Normacephalic Eye(s): bilateral: Normal Inspection Oral Mucosa: Moist Neck: Supple Cardiovascular: Rhythm Regular Respiratory: Rales (scant basilar), No Rhonchi, No Wheezing Gastrointestinal/Abdominal: Soft, No Tenderness, No Guarding, No Rebound Extremity: No Calf Tenderness, No Deformity, Other (+2 pitting edema to mid thighs bilaterally) Extremity: Bilateral: Normal ROM Pulses: Left Dorsalis Pedis: Normal, Right Dorsalis Pedis: Normal Neurological/Psych: Oriented x3, Normal Speech, Normal Motor, Normal Sensation ED Course And Treatment - Laboratory Results Result Diagrams: 09/12/17 17:25 O2 Sat by Pulse Oximetry: 99 (RA) Pulse Ox Interpretation: Normal Medical Decision Making Medical Decision Making: Progress: Patient states he is taking public transportation home and prefers to not be given any diuretic medication now. Patient discharged emphasized to follow up PMD and Rn Clinical Quality for further evaluation and treatment. Disposition Counseled Patient/Family Regarding: Diagnosis, Need For Followup, Rx Given - Disposition Referrals: your,pmd [Other] Disposition: HOME/ ROUTINE Disposition Time: 17:34 Prescriptions: Furosemide [Lasix] 40 mg PO DAILY #14 tab Instructions: Dependent Edema (DC) Forms: [employer] ([employer]) - Clinical Impression Clinical Impression: Leg edema, Medication refill - Scribe Statement The provider has reviewed the documentation as recorded by the Scribnabila Awad All medical record entries made by the Scribe were at my direction and personally dictated by me. I have reviewed the chart and agree that the record accurately reflects my personal performance of the history, physical exam, medical decision making, and the department course for this patient. I have also personally directed, reviewed, and agree with the discharge instructions and disposition.
[2017-09-12 17:34] LABS: BASO % 0.9 % (0.0-2.0); EOS # 0.2 K/uL (0.0-0.7); EOS % 2.7 % (0.0-4.0); HEMOGLOBIN 15.4 g/dL (12.0-18.0); LYMPH # 1.2 K/uL (1.0-4.3); LYMPH % 20.9 % (20.0-40.0); MEAN CELL VOLUME 98.4 fL (80.0-94.0); MEAN CORPUSCULAR HGB CONC 33.6 g/dL (33.0-37.0); MEAN PLATELET VOLUME 11.4 fL (7.2-11.7); MONO # 0.5 K/uL (0.0-0.8); MONO % 8.8 % (0.0-10.0); NEUT # 3.7 K/uL (1.8-7.0); NEUT % 66.7 % (50.0-75.0); RBC 4.67 Mil/uL (4.40-5.90); RED CELL DISTRIBUTION WIDTH 14.9 % (11.5-14.5); WHITE BLOOD COUNT 5.6 K/uL (4.8-10.8)
[2017-09-12 17:43] VITALS: BP 137/94; PULSE 85; TEMP 97.5
[2017-09-12 17:45] VITALS: O2SAT 99
== END 2017-09-12 17:45 | disposition home or self-care (01) ==
LOC: C.ER 14:18
DX: R60.0 Localized edema (principal); Z76.0 Encounter for issue of repeat prescription